=== PATIENT | male | born 1970 | race Two or more races ===

== ENCOUNTER 2019-12-06 16:13 | Emergency (ER) | payer OTHER ==
[~2019-12-06] VITALS: Ht 165.1 cm; Wt 86.2 kg
[2019-12-06 16:19] VITALS: BP 146/94
== END 2019-12-06 18:54 | disposition home or self-care (01) ==
LOC: ER 16:17
DX: S33.5XXA Sprain of ligaments of lumbar spine, initial encounter (principal); V89.2XXA Person injured in unspecified motor-vehicle accident, traffic, initial encounter; Y93.I9 Activity, other involving external motion; Y92.410 Unspecified street and highway as the place of occurrence of the external cause; Y99.8 Other external cause status
CPT/HCPCS: 72100